=== PATIENT | female | born 1995 | race Two or more races ===

== ENCOUNTER 2022-06-17 19:04 | Emergency (ER) | payer OTHER ==
[~2022-06-17] VITALS: Ht 157.5 cm; Wt 69.9 kg
[2022-06-17] MEDS ORDERED: PRENATAL 19 CH1 EACH PO (20:06)
== END 2022-06-17 22:26 | disposition home or self-care (01) ==
LOC: ER 19:04
DX: O20.9 Hemorrhage in early pregnancy, unspecified (principal); Z3A.01 Less than 8 weeks gestation of pregnancy

== ENCOUNTER 2022-06-26 19:34 | Emergency (ER) | payer OTHER ==
[~2022-06-26] VITALS: Ht 157.5 cm; Wt 69.9 kg
[~2022-06-26 19:34] MED LIST: PRENATAL 19 CH1 EACH PO
== END 2022-06-26 22:52 | disposition home or self-care (01) ==
LOC: ER 19:34
DX: O20.8 Other hemorrhage in early pregnancy (principal); Z3A.01 Less than 8 weeks gestation of pregnancy

== ENCOUNTER 2022-07-05 05:49 | Day surgery (SDC) | payer OTHER | END 2022-07-05 18:40 | disposition home or self-care (01) | LOC: CIR.AMB 05:49 | PROVIDERS: ATTEND Specialist | DX: O02.1 Missed abortion (principal); O72.2 Delayed and secondary postpartum hemorrhage; Z20.822 Contact with and (suspected) exposure to COVID-19 ==